=== PATIENT | male | born 1970 | race Caucasian/White ===

== ENCOUNTER 2017-03-28 01:38 | Emergency (ER) | payer OTHER ==
[~2017-03-28] VITALS: Ht 165.1 cm; Wt 71.7 kg
[2017-03-28 01:38] VITALS: BP_SYST 147
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
--- NOTE | 2017-03-28 01:38 | NUR ---
Patient to [facility] for evaluation. Patient in handcuffs. Report given to JAJA Ta.
--- NOTE | 2017-03-28 01:50 | NUR ---
Written and verbal consent obtained from patient for blood alcohol, name and verified by patient. Disinfected patient's skin with iodine that did not contain alcohol or other volatile organic compound. Collected the blood from the subject named by venipuncture, in the presence of Officer miriam [place] [id number]. Used a sterile, dry hypodermic needle and dry vacuum blood collection. The dry vacuum blood collection was supplied by the officer named above. Withdrew a specimen of blood from right forearm of the subject named above. Inverted the blood tube several times to ensure that the preservative and anticoagulant were thoroughly mixed in the blood specimen. I initialed the blood tube label for identification. The labeled blood tube was handed directly to the Officer named above. The blood tube stopper remained in place while I had possession of the blood tube. The Officer placed tube into envelope and sealed it in my presence. Envelope initialed by myself and Officer named above. Patient tolerated well, bandage applied, and bleeding controlled.
[2017-03-28 01:55] VITALS: BP_SYST 145
--- NOTE | 2017-03-28 01:55 | NUR ---
Patient escorted out of ER bay in handcuffs with officers walking next to the patient. Patient AAOx4, ambulatory with steady gait. Patient denies any complaints at this time.
== END 2017-03-28 01:55 ==
LOC: SED 01:38
DX: Z02.89 Encounter for other administrative examinations (principal)